=== PATIENT | female | born 1960 | race Caucasian/White ===

== ENCOUNTER 2020-04-22 21:46 | Inpatient (IN) | payer OTHER, SELFPAY ==
[~2020-04-22] VITALS: Ht 170.2 cm; Wt 106.6 kg
[2020-04-22 22:35] VITALS: BP_SYST 106
--- NOTE | 2020-04-22 22:40 | NUR ---
Patient to ER bed 1 to gown for evaluation. Side rails up.
--- NOTE | 2020-04-22 22:45 | NUR ---
PT FROM HOME A&O X4 C/O OF NAUSEA AND VOMITING SINCE WEDNESDAY. PT REPORTS VOMITING ALMOST EVERY 30 MINS. PT IS ALSO HAVING LOOSE STOOLS SHE VOMITS. PT HX OF DIABETES. PT UNABLE TO KEEP FLUIDS OR FOODS DOWN. PT C/O OF PAIN ALL OVER ABDOMEN, 6 OUT OF 10. PTS VOMIT APPEARS BROWN IN COLOR.
--- NOTE | 2020-04-22 22:49 | NUR ---
HERON - BS 566. AWARE.
--- NOTE | 2020-04-22 22:55 | NUR ---
ANKITA DOSHI at bedside examining patient.
[2020-04-22] MEDS ORDERED: NACL 0.9% 1,000 ML IV ONE (23:00)
--- NOTE | 2020-04-22 23:13 | NUR ---
# 22 gauge angiocath placed to LEFT HAND. Use of asceptic technique. Opsite placed over site. Blood return noted. Flushed with 10 cc of normal saline. No evidence of infiltration noted. Patient tolerated well.
--- NOTE | 2020-04-22 23:20 | NUR ---
iv fluids infusing at 999mls/hr per md verbal order.
--- NOTE | 2020-04-22 23:21 | NUR ---
xray at bedside.
--- NOTE | 2020-04-22 23:50 | NUR ---
# 18 gauge angiocath placed to right upper arm placed by Dr. Brand. Use of asceptic technique. Opsite placed over site. Blood return noted. Flushed with 10 cc of normal saline. No evidence of infiltration noted. Patient tolerated well.
--- NOTE | 2020-04-22 23:59 | NUR ---
spoke with wifes david .
[2020-04-23] VITALS (19 sets, daily range): BP systolic 78–112
--- NOTE | 2020-04-23 | NUR ---
lab at bedside.
--- NOTE | 2020-04-23 | NUR ---
respiratory at bedside for ABG.
--- NOTE | 2020-04-23 00:35 | NUR ---
# 16 FR In and Out catheter with use of sterile technique. Immediate return of 100 ml clear yellow urine noted. Urine sample collected and sent to lab. Pt tolerated procedure well.
[2020-04-23 00:39] LABS: BASOPHILS % (AUTO) 0.3 % (0.0-2.0); HEMATOCRIT 40.4 % (36-48); HEMOGLOBIN 13.2 g/dL (12.0-16.0); LYMPHOCYTES # (AUTO) 0.7 K/uL (1.0-5.5); LYMPHOCYTES % (AUTO) 4.2 % (20.5-51.5); MEAN CORPUSCULAR HEMOGLOBIN 28 pg (27-31); MEAN CORPUSCULAR HGB CONC 33 % (32-36); MEAN CORPUSCULAR VOLUME 87 fL (79.0-98.0); MONOCYTES # (AUTO) 0.9 K/uL (0.0-1.0); MONOCYTES % (AUTO) 5.4 % (1.7-9.3); NEUTROPHILS # (AUTO) 15.7 K/uL (1.8-7.7); NEUTROPHILS % (AUTO) 90.1 % (40.0-70.0); PLATELET COUNT (AUTO) 334 K/uL (130-430); RED BLOOD CELL COUNT(AUTO) 4.67 MIL/uL (4.2-6.2); RED CELL DISTRIBUTION WIDTH 13.3 % (9.0-15.0); WHITE BLOOD COUNT (AUTO) 17.4 K/uL (4.8-10.8)
[2020-04-23 00:53] LABS: CALCIUM 7.8 mg/dL (8.4-11.0); CREATININE 2.77 mg/dL (0.55-1.30); POTASSIUM 5.1 mmol/L (3.5-5.1)
--- NOTE | 2020-04-23 00:53 | NUR ---
accrolando - BS "HI" >600. AWARE.
[2020-04-23 00:57] LABS: BILIRUBIN,URINE 2+ (NEGATIVE); BLOOD, URINE NEGATIVE (NEGATIVE); CLARITY/URINE SL CLOUDY (CLEAR); COLOR,URINE YELLOW (YELLOW); GLUCOSE,URINE 3+ (NEGATIVE); KETONES,URINE 1+ (NEGATIVE); LEUKOCYTE ESTERASE ,URINE NEGATIVE (NEGATIVE); NITRITE, URINE NEGATIVE (NEGATIVE); PROTEIN URINE NEGATIVE (NEGATIVE); UROBILINOGEN,URINE 0.2 (0.2-1.0)
[2020-04-23 01:00] LABS: ALBUMIN 3.5 g/dL (3.4-4.8); BILIRUBIN,DIRECT 0.2 mg/dL (0.0-0.3); PHOSPHORUS 6.4 mg/dL (2.7-4.5)
[2020-04-23] MEDS ORDERED: INSU100V9 SQ (01:01)
[2020-04-23] MEDS ORDERED: FURO-150 PO (01:01)
[2020-04-23] MEDS ORDERED: INSU100V7 SUBCUT (01:01)
[2020-04-23] MEDS ORDERED: LISI2.5T48 PO (01:01)
--- NOTE | 2020-04-23 01:01 | NUR ---
Medication reconciliation completed with information provided by PATIENT. Any prior medication reconciliation on file was reviewed and corrected. PATIENT DOES NOT REMEMBER DOSAGES AT THIS TIME.
--- NOTE | 2020-04-23 01:08 | NUR ---
CRITICAL LAB REPORTING - CHLORIDE 84, GLUCOSE 643. AWARE
[2020-04-23 01:14] LABS: BACTERIA,URINE FEW /HPF (None Seen); RBC,URINE 0-3 /HPF (0-3); WBC,URINE 0-3 /HPF (0-3)
[2020-04-23] MEDS ORDERED: INSULIN REGULAR, HUMAN 10 UNITS/0.1 ML INJ IVP ONE ×2 (01:15)
[2020-04-23 01:19] LABS: HYALINE CASTS, URINE 0-10 /LPF (None Seen)
--- NOTE | 2020-04-23 01:30 | NUR ---
Patient's code status is FULL CODE paperwork completed and placed in chart.
--- NOTE | 2020-04-23 01:45 | NUR ---
covid and mrsa swab collected and sent to lab.
--- NOTE | 2020-04-23 02:10 | NUR ---
LAB AT BEDSIDE.
--- NOTE | 2020-04-23 02:16 | NUR ---
IV FLUIDS STARTED AT 100MLS/HR FOR MAINTENANCE PER MD ORDER. PT BP 87/42. MD AWARE.
[2020-04-23] MEDS ORDERED: NACL 0.9% 1,000 ML IV ONE ×2 (02:50→07:50)
--- NOTE | 2020-04-23 02:51 | NUR ---
PT BLOOD PRESSURE 81/30. MD AWARE. ORDER TO GIVE NORMAL SALINE 500ML BOLUS.
--- NOTE | 2020-04-23 02:57 | NUR ---
SPOKE WITH TO UPDATE HIM ON STATUS OF PATIENT, WITH PATIENT CONSENT.
[2020-04-23] MEDS ORDERED: NS 500 ML IV ONE ×2 (03:00)
[2020-04-23 03:01] LABS: CALCIUM 7.4 mg/dL (8.4-11.0); CREATININE 2.97 mg/dL (0.55-1.30); POTASSIUM 3.9 mmol/L (3.5-5.1)
--- NOTE | 2020-04-23 03:04 | NUR ---
CRITICAL LAB REPORTING - CHLORIDE 88, GLUCOSE 550. AWARE.
[2020-04-23] MEDS ORDERED: PIPERACILLIN/TAZO 3.375 GM in NS 50 ML IV ONE (03:15)
[2020-04-23] MEDS ORDERED: INSULIN REGULAR, HUMAN 100 UNITS in NS 99 ML IV ONE ×4 (03:15→03:30)
[2020-04-23] MEDS ORDERED: PIPERACILLIN/TAZOBACTAM 3.375 GM/VIAL (ZOSYN) IV ONE ×2 (03:36→04:13)
[2020-04-23] MEDS ORDERED: INSULIN REGULAR, HUMAN 10 UNITS/0.1 ML INJ ONE (03:37)
--- NOTE | 2020-04-23 03:38 | NUR ---
RECEIVED ADMIT ORDERS FROM DR. BETTS.
--- NOTE | 2020-04-23 03:40 | NUR ---
CALLED [facility] TO REQUEST ICU BED.
--- NOTE | 2020-04-23 03:50 | NUR ---
ACCNORBERTO - BS 511. MD AWARE. INSULIN DRIP INITIATED AT 6 UNITS/HR PER PROTOCOL.
--- NOTE | 2020-04-23 03:52 | NUR ---
IV ON RIGHT UPPER ARM INFILTRATED. IV DISCONTINUED. BLEEDING CONTROLLED.
[2020-04-23] MEDS ORDERED: ONDANSETRON HCL 4 MG/2 ML VIAL IVP ONE ×2 (04:45)
--- NOTE | 2020-04-23 04:51 | NUR ---
ACCUCHCORINA - BS 512. MD AWARE. INSULIN DRIP 6UNITS/HR
--- NOTE | 2020-04-23 04:52 | NUR ---
Patient will be admitted to [facility]. Admitted to ICU unit. Will go to room 3. Belongings list completed. Complete and up to date summary report printed. SBAR report to be given at bedside with opportunity for questions.
--- NOTE | 2020-04-23 04:52 | NUR ---
Transfer to ICU via ACLS protocol. Licensed nurse present. IV present no signs or symptoms of infiltration.
--- NOTE | 2020-04-23 05:00 | NUR ---
ICU ADMIT Pt is alert and oriented. Pt is on room air, RR even and unlabored. SR on monitor. Skin warm and dry. IV22G to LEFT HAND with IVF infusing and INSULIN DRIP. Belongings at bedside. Report given by ER nurse.
[2020-04-23] MEDS: NACL 0.9% 1,000 ML IV SCH ×3 (05:18→16:58)
--- NOTE | 2020-04-23 07:16 | NUR ---
Nutrition Update Harshal Scale 17 noted. Pt admitted for DKA Diet: NPO BMI: 37 kg/m2 RD to follow per nutrition care standards.
--- NOTE | 2020-04-23 07:30 | NUR ---
Opening Note Received bedside report from endorsing RN for continuation of care. Received patient awake and resting in bed, denies any pain or SOB at this time. No signs or symptoms of acute distress noted. Bed locked in lowest position, bed alarm on, and call light within reach. Fall and safety precautions in place.
[2020-04-23] MEDS ORDERED: INSULIN REGULAR, HUMAN 100 UNITS in NS 99 ML IV PRN ×2 (07:45)
[2020-04-23] MEDS ORDERED: DEXTROSE 50% JECT 50 ML DISP.SYRIN IVP PRN (07:45)
[2020-04-23 07:54] LABS: CALCIUM 7.6 mg/dL (8.4-11.0); CREATININE 3.08 mg/dL (0.55-1.30); POTASSIUM 4.3 mmol/L (3.5-5.1)
[2020-04-23 08:00] LABS: ALBUMIN 3.3 g/dL (3.4-4.8); TOTAL BILIRUBIN 0.7 mg/dL (0.0-1.0)
[2020-04-23] MEDS ORDERED: NOREPINEPHRINE BITARTRATE 4 MG in NS 246 ML IV PRN (08:00)
[2020-04-23] MEDS ORDERED: ONDANSETRON HCL 4 MG/2 ML VIAL IVP PRN (08:00)
--- NOTE | 2020-04-23 08:00 | NUR ---
Dr. Champion at bedside examining patient. New orders received.
[2020-04-23 08:08] LABS: BASOPHILS # (AUTO) 0.1 K/uL (0.0-0.2); BASOPHILS % (AUTO) 0.4 % (0.0-2.0); HEMATOCRIT 38.8 % (36-48); HEMOGLOBIN 12.8 g/dL (12.0-16.0); LYMPHOCYTES # (AUTO) 0.8 K/uL (1.0-5.5); LYMPHOCYTES % (AUTO) 4.5 % (20.5-51.5); MEAN CORPUSCULAR HEMOGLOBIN 28 pg (27-31); MEAN CORPUSCULAR HGB CONC 33 % (32-36); MEAN CORPUSCULAR VOLUME 85 fL (79.0-98.0); MONOCYTES # (AUTO) 0.8 K/uL (0.0-1.0); MONOCYTES % (AUTO) 4.6 % (1.7-9.3); NEUTROPHILS # (AUTO) 15.8 K/uL (1.8-7.7); NEUTROPHILS % (AUTO) 90.5 % (40.0-70.0); PLATELET COUNT (AUTO) 207 K/uL (130-430); RED BLOOD CELL COUNT(AUTO) 4.56 MIL/uL (4.2-6.2); RED CELL DISTRIBUTION WIDTH 13.6 % (9.0-15.0); WHITE BLOOD COUNT (AUTO) 17.5 K/uL (4.8-10.8)
[2020-04-23 08:43] LABS: PHOSPHORUS 5.7 mg/dL (2.7-4.5)
[2020-04-23 08:49] LABS: ACETONE, SERUM POSITIVE (NEGATIVE)
[2020-04-23] MEDS: FAMOTIDINE PF 20 MG/2 ML VIAL IVP SCH ×2 (09:15→21:21)
--- NOTE | 2020-04-23 09:16 | NUR ---
Witness insulin drip titration to 2 units/hr
[2020-04-23 09:34] LABS: INR 0.9 (0.8-1.2); PROTHROMBIN TIME 9.7 SECS (9.5-12.5)
--- NOTE | 2020-04-23 09:49 | NUR ---
Dr. Arauz at bedside examining patient. New orders received.
--- NOTE | 2020-04-23 10:04 | NUR ---
Family Update Spoke with patient's David on the phone regarding patient status and plan of care. All questions answered and education provided.
[2020-04-23] MEDS ORDERED: METOCLOPRAMIDE HCL 10 MG/2 ML VIAL IVP PRN (10:15)
[2020-04-23] MEDS ORDERED: MORPHINE 4 MG/ML INJ. SYRINGE IVP PRN (10:15)
[2020-04-23] MEDS ORDERED: ACETAMINOPHEN 325 MG TABLET PO PRN (10:15)
[2020-04-23] MEDS: MORPHINE 2 MG/ML INJ. SYRINGE IVP PRN ×4 (10:38→21:11)
--- NOTE | 2020-04-23 10:45 | NUR ---
LYNNE CATH: # 16 FR Lynne catheter with 10 cc bulb inserted with use of sterile technique. Bulb inflated with 10 cc sterile water. Immediate return of 350 cc cloudy, yellow urine noted. Bedside drainage bag placed below level of bladder. Urine sample collected and sent to lab at 1100. Pt tolerated procedure well.
[2020-04-23 11:00] LABS: THYROID STIMULATING HORMONE 0.88 uIu/mL (0.34-4.82)
[2020-04-23 12:03] LABS: CALCIUM 7.6 mg/dL (8.4-11.0); CREATININE 2.91 mg/dL (0.55-1.30); POTASSIUM 4.2 mmol/L (3.5-5.1)
[2020-04-23] MEDS: ONDANSETRON HCL 4 MG/2 ML VIAL IVP PRN ×2 (12:32→22:09)
--- NOTE | 2020-04-23 12:34 | NUR ---
Witness insulin drip titration to 3 units/hr
[2020-04-23] MEDS: PIPERACILLIN/TAZO 2.25G/DEX-IS 50 ML IV SCH ×2 (13:12→22:03)
--- NOTE | 2020-04-23 13:14 | NUR ---
Witness insulin drip titration to 2 units/hr
--- NOTE | 2020-04-23 14:55 | NUR ---
PICC Line Insertion PICC Line insertion being done at bedside by PICC line RN Ryland.
--- NOTE | 2020-04-23 16:21 | NUR ---
Witness insulin drip titration to 1 unit/hr
[2020-04-23 16:48] LABS: CALCIUM 7.9 mg/dL (8.4-11.0); CREATININE 2.79 mg/dL (0.55-1.30); POTASSIUM 4.1 mmol/L (3.5-5.1)
--- NOTE | 2020-04-23 19:05 | NUR ---
Closing Note Endorsed bedside report to oncoming RN using SBAR approach for continuation of care.
--- NOTE | 2020-04-23 19:27 | NUR ---
Opening Note Received bedside report from endorsing RN for continuation of care. Received patient awake and resting in bed, denies any pain or SOB at this time. No signs or symptoms of acute distress noted. Introduction made, Bed locked in lowest position, bed alarm on, and call light within reach. Fall and safety precautions in place.
--- NOTE | 2020-04-23 19:35 | NUR ---
Lab Draw: cvir tech at bedside performing BMP draw.
--- NOTE | 2020-04-23 20:00 | NUR ---
Skin Note: Bilateral Plantar of Feet noted with large areas of abrasions / cracked open areas. Wound Consult placed. Will endorse to AM nurse.
--- NOTE | 2020-04-23 20:07 | NUR ---
Insulin Drip: BS 94, per protocol Insulin drip turned off, Charge aware.
[2020-04-23] MEDS: D5NS 1,000 ML IV SCH (20:35)
--- NOTE | 2020-04-23 20:47 | NUR ---
Blood Draw: requested Chem 7 panel, drawn from [facility], wasted 10 ml then blanco Green Top.
--- NOTE | 2020-04-23 21:11 | NUR ---
WITNESS Witnessed LETTY Friend titrate Insulin Drip to 1unit/hr.
--- NOTE | 2020-04-23 21:11 | NUR ---
GLUCOSE: BS 157, INSULIN RESTARTED AT 1 UNIT PER PROTOCOL
--- NOTE | 2020-04-23 22:00 | NUR ---
WITNESS Witnessed LETTY Friend titrate Insulin Drip to 3unit/hr.
--- NOTE | 2020-04-23 22:15 | NUR ---
C/O Patient c/o Nausea, Zofran IVP given, medication found to be effective.
[2020-04-23 22:22] LABS: CALCIUM 8.1 mg/dL (8.4-11.0); CREATININE 2.3 mg/dL (0.55-1.30); POTASSIUM 3.8 mmol/L (3.5-5.1)
--- NOTE | 2020-04-23 22:40 | NUR ---
PIV: PIV to left Hand d/c, non-patent, unable to flush.
--- NOTE | 2020-04-23 23:03 | NUR ---
WITNESS Witnessed LETTY Friend titrate Insulin Drip to 2unit/hr.
--- NOTE | 2020-04-23 23:33 | NUR ---
Nsg Rounds: Patient resting in bed with eyes closed, no acute distress noted. Bed in lowest and locked position with call light in reach. New bag of Insulin mixed by charge nurse, drip running at 2 units via KI PICC.
[2020-04-24] VITALS (22 sets, daily range): BP systolic 98–124
--- NOTE | 2020-04-24 00:08 | NUR ---
Blood Draw: requested Chem 7 panel Q4 hours, drawn from [facility], wasted 10 ml then blanco Green Top.
[2020-04-24 00:53] LABS: CALCIUM 7.8 mg/dL (8.4-11.0); CREATININE 2.34 mg/dL (0.55-1.30); POTASSIUM 3.8 mmol/L (3.5-5.1)
--- NOTE | 2020-04-24 02:00 | NUR ---
Nsg Rounds: Patient asleep in bed, no discomfort noted. BS 217, remains on 2 units Insulin Drip via KI PICC. Bed in lowest locked position, call light in reach. Continuing to monitor for adverse effects.
--- NOTE | 2020-04-24 03:07 | NUR ---
WITNESS Witnessed LETTY Friend titrate Insulin Drip to 1unit/hr.
[2020-04-24] MEDS: D5NS 1,000 ML IV SCH (03:38)
--- NOTE | 2020-04-24 03:43 | NUR ---
Blood Draw: requested Chem 7 panel Q4 hours, drawn from [facility] P[facility], wasted 10 ml then blanco Green Top.
[2020-04-24 04:03] LABS: CALCIUM 8.1 mg/dL (8.4-11.0); CREATININE 2.07 mg/dL (0.55-1.30); POTASSIUM 3.9 mmol/L (3.5-5.1)
--- NOTE | 2020-04-24 04:06 | NUR ---
WITNESS Witnessed LETTY Friend titrate Insulin Drip to 2unit/hr.
--- NOTE | 2020-04-24 04:12 | NUR ---
Consults: Wound Care consult placed, Dietary consult placed r/t open areas on Bilateral Plantar Feet.
[2020-04-24] MEDS: MORPHINE 2 MG/ML INJ. SYRINGE IVP PRN ×3 (04:58→20:18)
--- NOTE | 2020-04-24 04:59 | NUR ---
WITNESS Witnessed LETTY Friend titrate Insulin Drip to 1unit/hr.
--- NOTE | 2020-04-24 05:00 | NUR ---
Pain: Patient C/O body aches, afebrile. Pt verbalized 6/10 pain on numeric scale, PRN Morphine 2 mg IVP given. Pt tolerated well. Will re-assess.
--- NOTE | 2020-04-24 05:30 | NUR ---
Pain Re-Assess: Pt asleep in bed with call light in reach, bed in lowest locked position.
[2020-04-24] MEDS ORDERED: DEXTROSE 50% JECT 50 ML DISP.SYRIN IVP PRN ×2 (05:45→16:30)
[2020-04-24] MEDS: PIPERACILLIN/TAZO 2.25G/DEX-IS 50 ML IV SCH ×3 (06:02→22:48)
--- NOTE | 2020-04-24 06:14 | NUR ---
PICC Line: Patient states PICC line is becoming increasingly painful, measured circumference 38cmm, will notify .
--- NOTE | 2020-04-24 06:16 | NUR ---
Paged Dr. Arauz paged r/t PICC line insertion pain, pending return call. Charge made aware.
--- NOTE | 2020-04-24 06:26 | NUR ---
Per Dr. Arauz: New orders rc'vd and transcribed, STAT X-ray, STAT Venous Doppler, D/C Fluids, D/C Q hr Accu checks, Start Full Liquid Diet.
--- NOTE | 2020-04-24 06:34 | NUR ---
Insulin Drip Turned Off per MD Dr. Arauz, start sliding scale.
--- NOTE | 2020-04-24 06:35 | NUR ---
WITNESS Witnessed LETTY Friend turn Insulin Drip OFF PER MD ORDERS.
--- NOTE | 2020-04-24 06:35 | NUR ---
X-ray: X-Ray completed, pending reading from Radiologist.
--- NOTE | 2020-04-24 07:01 | NUR ---
Closing Note Endorsed bedside report to oncoming RN using SBAR approach for continuation of care.
[2020-04-24 08:09] LABS: CALCIUM 8.2 mg/dL (8.4-11.0); CREATININE 1.82 mg/dL (0.55-1.30)
[2020-04-24] MEDS: FAMOTIDINE PF 20 MG/2 ML VIAL IVP SCH ×2 (09:07→21:01)
[2020-04-24] MEDS: NACL 0.9% 1,000 ML IV SCH (09:08)
--- NOTE | 2020-04-24 09:57 | NUR ---
Dr. Arauz here to see patient.
--- NOTE | 2020-04-24 10:52 | NUR ---
Wound Evaluation: Wound Consult ordered for Low Harshal Score. Patient evaluated for a low Harshal score of 17. Patient was awake, alert, oriented and received in a Didi Bed with an IsoFlex NAN mattress. Patient is able to turn in bed independently. Skin assessment: 1. Left Plantar Foot: Multiple multiple dry fissures, present on admission. Plantar surface of foot has dry, hard skin. 2. Right Plantar Foot: Multiple multiple dry fissures, present on admission. Plantar surface of foot has dry, hard skin. Recommend: Cleanse bilateral feet with mild soap and water. Pat dry. Apply Eucerin cream to dry skin areas on bilateral feet and legs. Perform site care twice daily. Also recommend: Encourage and assist patient as needed with repositioning every 2 hours with pillow support. Elevate, off-load and float bilateral heels with pillows. Offload pressure areas with pillows for pressure re-distribution. Perform skin care and monitor skin integrity Q shift. Use moisture barrier cream on moisture susceptible areas QID and PRN for soiling.
[2020-04-24] MEDS: EMOLLIENT COMBINATION NO.73 78 GM CREAM..G. TP SCH ×2 (11:00→21:02)
[2020-04-24] MEDS: INSULIN REGULAR, HUMAN 100 UNITS/ML, 10 ML VIAL (humuLIN R) SUBCUT PRN (11:59)
--- NOTE | 2020-04-24 12:00 | NUR ---
Blood Sugar - 574 mg/dl. Due insulin coverage given. Will call MD and notify per protocol.
[2020-04-24] MEDS: ONDANSETRON HCL 4 MG/2 ML VIAL IVP PRN ×2 (12:04→20:18)
[2020-04-24] MEDS ORDERED: INSULIN GLARGINE 100 UNITS/ML 10 ML VIAL SUBCUT ONE (13:15)
--- NOTE | 2020-04-24 14:00 | NUR ---
Pt asleep at this time. Vitals stable.
[2020-04-24 15:10] LABS: CALCIUM 8.2 mg/dL (8.4-11.0); CREATININE 1.99 mg/dL (0.55-1.30); POTASSIUM 4.4 mmol/L (3.5-5.1)
--- NOTE | 2020-04-24 15:47 | NUR ---
PAGED PAGED GOPI MACIAS AT [phone] SPOKE WITH SARAH.
--- NOTE | 2020-04-24 16:25 | NUR ---
Critical labs relayed to Dr. Champion, with orders carried out. Will restart Insulin drip. TO/RB orders done.
[2020-04-24] MEDS ORDERED: INSULIN REGULAR, HUMAN 100 UNITS in NS 99 ML IV PRN ×2 (16:30)
--- NOTE | 2020-04-24 16:50 | NUR ---
Witnessed Insulin Drip to 4 units/hr.
--- NOTE | 2020-04-24 16:50 | NUR ---
BS - 396 MG/DL. Insulin drip restarted at 4 units/hr
--- NOTE | 2020-04-24 18:05 | NUR ---
BS - 285 mg/dl. Insulin drip titrated down to 2 units/hr
--- NOTE | 2020-04-24 18:08 | NUR ---
Witnessed insulin drip titrated to 2 units/hr.
--- NOTE | 2020-04-24 19:00 | NUR ---
BS - 268 mg/dl. Insulin drip @ 2 units.hr. Addendum: 04/24/20 at 1902 by Konrad Da Silva RN Insulin drip @ 2 units/hr
--- NOTE | 2020-04-24 19:55 | NUR ---
WITNESS Witnessed LETTY Friend titrate Insulin Drip to 1unit/hr.
--- NOTE | 2020-04-24 20:21 | NUR ---
Pain: Pt verbalized 6/10 pain, states, "My whole body just aches". PRN Morphine Given 2 mg IVP with 4 mg IVP Zofran.
--- NOTE | 2020-04-24 20:45 | NUR ---
Pain Rx: Morphine Mildly effective, patient states "I feel a little better right now".
--- NOTE | 2020-04-24 21:00 | NUR ---
WITNESS Witnessed LETTY Friend titrate Insulin Drip to 0.5unit/hr.
[2020-04-24 21:01] LABS: CALCIUM 8.4 mg/dL (8.4-11.0); CREATININE 1.75 mg/dL (0.55-1.30); POTASSIUM 4.3 mmol/L (3.5-5.1)
--- NOTE | 2020-04-24 21:07 | NUR ---
Foot Care: Foot care provided with application of Eucerin, new socks offered, patient declined.
--- NOTE | 2020-04-24 22:30 | NUR ---
NSG Rounds: Patient resting in no acute distress, patient requested snack. Sugar Free Jello given. Bed in lowest locked position with call light in reach.
[2020-04-25] VITALS (11 sets, daily range): BP systolic 108–140
--- NOTE | 2020-04-25 | NUR ---
NSG Rounds: Patient asleep in no apparent distress and or discomfort. Bed in lowest position call light in reach.
--- NOTE | 2020-04-25 02:01 | NUR ---
NSG Rounds: Patient asleep in no apparent distress and or discomfort. Bed in lowest position call light in reach.
[2020-04-25 02:36] LABS: CALCIUM 8.3 mg/dL (8.4-11.0); CREATININE 1.64 mg/dL (0.55-1.30); POTASSIUM 3.8 mmol/L (3.5-5.1)
[2020-04-25] MEDS: MORPHINE 2 MG/ML INJ. SYRINGE IVP PRN (02:56)
--- NOTE | 2020-04-25 03:30 | NUR ---
PRN Rx: PRN Morphine given for body aches bu covering RN, medication effective.
[2020-04-25] MEDS: NACL 0.9% 1,000 ML IV SCH (05:23)
[2020-04-25] MEDS: PIPERACILLIN/TAZO 2.25G/DEX-IS 50 ML IV SCH (05:29)
--- NOTE | 2020-04-25 05:33 | NUR ---
NSG Rounds: Patient sitting up in bed crying, patient stated "I feel sad so often and dont know why". Encouraged patient to express feelings. Will endorse to am nurse for consult with Pysch and [employer] As[employer]er. Patient states, "I dont have the money to buy my insulin". Resources will be requested to aide patient, charge aware.
--- NOTE | 2020-04-25 07:25 | NUR ---
AM ROUNDS: PATIENT ON THE BED.AWAKE,ALERT AND ORIENTED X4. INSULIN DRIP AT RIGHT UPPER ARM PICC LINE,DRESSING CLEAN AND DRY. IV NS AT 50CC/H. BILATERAL SCD'S LE OFF PER PATIENT'S REQUEST. ON MEDICAL TRANSCRIPTION RADIOLOGY.HOURLY ACCU CHECK PER REPORT. NOT IN ANY DISTRESS.
--- NOTE | 2020-04-25 08:00 | NUR ---
BLOOD SUGAR: BLOOD GTIIC=391LC/DL,MAINTAINED 0.5UNIT/H RATE PER PROTOCOL.
[2020-04-25 08:24] LABS: BASOPHILS # (AUTO) 0.1 K/uL (0.0-0.2); BASOPHILS % (AUTO) 0.6 % (0.0-2.0); EOSINOPHILS # (AUTO) 0.1 K/uL (0.0-0.4); EOSINOPHILS % (AUTO) 0.9 % (0.0-4.0); HEMATOCRIT 34.2 % (36-48); HEMOGLOBIN 11.6 g/dL (12.0-16.0); LYMPHOCYTES # (AUTO) 1.2 K/uL (1.0-5.5); LYMPHOCYTES % (AUTO) 14.3 % (20.5-51.5); MEAN CORPUSCULAR HEMOGLOBIN 29 pg (27-31); MEAN CORPUSCULAR HGB CONC 34 % (32-36); MEAN CORPUSCULAR VOLUME 84 fL (79.0-98.0); MONOCYTES # (AUTO) 0.8 K/uL (0.0-1.0); MONOCYTES % (AUTO) 9.7 % (1.7-9.3); NEUTROPHILS # (AUTO) 6.2 K/uL (1.8-7.7); NEUTROPHILS % (AUTO) 74.5 % (40.0-70.0); PLATELET COUNT (AUTO) 211 K/uL (130-430); RED BLOOD CELL COUNT(AUTO) 4.05 MIL/uL (4.2-6.2); RED CELL DISTRIBUTION WIDTH 13.6 % (9.0-15.0); WHITE BLOOD COUNT (AUTO) 8.3 K/uL (4.8-10.8)
[2020-04-25] MEDS: FAMOTIDINE PF 20 MG/2 ML VIAL IVP SCH (08:32)
[2020-04-25] MEDS: EMOLLIENT COMBINATION NO.73 78 GM CREAM..G. TP SCH (08:36)
[2020-04-25 08:40] LABS: CALCIUM 8.5 mg/dL (8.4-11.0); CREATININE 1.43 mg/dL (0.55-1.30); POTASSIUM 3.8 mmol/L (3.5-5.1)
--- NOTE | 2020-04-25 09:35 | NUR ---
MD ROUNDS: PATIENT SEEN BY DR BETTS WITH ORDERS DC INSULIN DRIP AND CHANGE ACCU CHECK TO EVERY 6HOURS PER SLIDING SCALE.MAY TRANSFER PATIENT TO MED SURGICAL UNIT.
[2020-04-25] MEDS ORDERED: INSULIN GLARGINE 100 UNITS/ML 10 ML VIAL SUBCUT ONE (09:45)
--- NOTE | 2020-04-25 09:46 | NUR ---
DC INSULIN DRIP: STOPPED INSULIN DRIP ORDERED BY .
--- NOTE | 2020-04-25 09:50 | NUR ---
RN ROUNDS: INFORMED PATIENT INSULIN DRIP OFF AND OKAY TO BE TRANSFER TO MEDICAL SURGICAL UNIT ORDERED.
--- NOTE | 2020-04-25 10:20 | NUR ---
SPOKE TO DAUGHTER/DC EMPLOYEE BENEFITS INSURANCE AGENT: SPOKE TO PATIENT'S DAUGHTER NANCY WANT'S TO TALK TO ADMISSIONS ADVISOR REGARDING INSURANCE NOT APPROVING HER'S MOM'S INSULIN. SPOKE TO JUAN DAVID DC EMPLOYEE BENEFITS INSURANCE AGENT AND TOLD HER PATIENT'S CONCERN AND DAUGHTER WANTING TO SPEAK TO ADMISSIONS ADVISOR WELL.
--- NOTE | 2020-04-25 10:32 | NUR ---
REPORT NOTES: REPORT GIVEN TO [facility] NURSE.
--- NOTE | 2020-04-25 11:20 | NUR ---
TRANSFER OUT TO [facility]: PATIENT TRANSFERRED OUT TO MEDICAL SURGICAL UNIT IN ROOM 116-B VIA WHEELCHAIR IN STABLE CONDITION. ORIENTED PATIENT TO CALL LIGHT AND SITUATED COMFORTABLY. [facility] NURSE ART MCKINNON.
--- NOTE | 2020-04-25 11:21 | NUR ---
Admit Note received patient from ICU, patient instable condition, received report from Ermelinda SAENZ at 1033, safety measures put in place, fall and aspiration precautions put in place, will monitor patient for any changes.
[2020-04-25] MEDS: INSULIN REGULAR, HUMAN 100 UNITS/ML, 10 ML VIAL (humuLIN R) SUBCUT PRN (12:33)
--- NOTE | 2020-04-25 14:26 | NUR ---
Spoke w/ patient-she is concerned about the cost of her medications, not covered by insurance. Spoke with patient's daughter, , insurance and PCP's office-Dr Ca. Family can cover the cost of insulin w/ RX discount card according to and daughter. (patient given 2 Rx discount cards and joe for Good RX). Patient needs to complete forms for [employer] for help with medication cost-her insulin is [id number] was explained to her, she stated she is working w/ the PCP's office to complete this paper work. Patient and family will also explore insurance through her 's work for better Rx coverage.
--- NOTE | 2020-04-25 14:41 | NUR ---
Birth Certificate Clerk Note Patient referred by patient, Dr Arauz, and nursing due to needing help with obtaining insulin and crying. Later, patient voiced possible suicidal ideation. Libertad MURGUIA managed the questions regarding insurance and insulin. Met with patient at bedside. Patient is tearful and stated that she wants to go home. Offered support and discussed the joe Good RX that patient is familiar with and will use to obtain her prescription until her insurance issues are resolved. Discussed that patient's nurse was concerned that she had mentioned suicide. Patient stated she had said she felt like getting a gun and shooting everyone and herself. Patient stated she was "kidding". She stated she was being stupid and trying to voice how frustrated she is. "I shot my mouth off. I'm sorry. That was stupid. I wouldn't even know where to get a gun. I just want to go home." When I stated Dr Arauz wanted her to stay another day, she said again that she wanted to go home. I asked again about suicidal or homicidal ideation or attempts. The patient stated she would never do such a thing. She has too much to live for, including her grandson who lives with her. I provided a list of mental health resources and encouraged patient to call when she gets home. Patient does not want to see a psychiatrist in the hospital. Patient sees the Covid pandemic as the start of her problems. She lost her job, and, thus, her insurance. This led to her not getting her insulin paid for under her new insurance. She does not like being isolated at home. She does live with her , daughter, and grandson. She has been feeling sad often, but recently, not before Covid. She again stated she would follow up with a mental health professional for counseling. I do not think she meant her comments on a gun to be taken seriously as suicidal or homicidal thoughts. I recommend and referred patient to outpatient mental health services to help her cope with her feelings of sadness and isolation. Patient agreed. Addendum: 04/25/20 at 1510 by Heidi Carcamo LCSW Spoke with Cindy SAENZ. Since patient is now aware that any comments that could be seen as suicidal are taken very seriously, if she makes any additional such comments, we should obtain a psychiatric consult and be given a sitter. Addendum: 04/25/20 at 1518 by Heidi Carcamo LCSW Late note from above. Patient has no history of mental health diagnosis or intervention.
--- NOTE | 2020-04-25 14:43 | NUR ---
Dietitian Recommendations * Recommend continuing [facility] diet * Consider renal diet if renal labs do not improve LP, RD Please refer to Nutrition Assessment for details. Addendum: 04/25/20 at [address] Amended: Links added.
[2020-04-25 15:26] LABS: CALCIUM 7.8 mg/dL (8.4-11.0); CREATININE 1.26 mg/dL (0.55-1.30); POTASSIUM 3.5 mmol/L (3.5-5.1)
--- NOTE | 2020-04-25 16:00 | NUR ---
AMA: Patient does not wish to proceed with medical care recommended by Dr. Arauz. Patient given information related to possible complications, up to and including , which could occur as a result of leaving hospital at this time. Patient verbalizes understanding of risks involved leaving against medical advice. Patient has signed AMA form. Torres removed, patient educated to follow-up with ER if no void within 8 hours-patient verbalized her understanding. KI midline removed, catheter intact, dressing applied, no active bleeding. Patient left floor via wheelchair to private vehicle in no distress.
[2020-04-25] MEDS ORDERED: INSULIN GLARGINE 100 UNITS/ML 10 ML VIAL SUBCUT SCH (21:00)
== END 2020-04-25 16:00 | disposition left against medical advice (07) | DRG 682 ==
LOC: SED 21:46 → SIC 04-23 03:30 → STU 04-25 11:22 → SMU 04-25 11:23
PROVIDERS: ADMIT Internal Medicine Hospice and Palliative Medicine; ATTEND Internal Medicine Hospice and Palliative Medicine
DX: N17.9 Acute kidney failure, unspecified (principal); E11.10 Type 2 diabetes mellitus with ketoacidosis without coma; Z20.828 Contact with and (suspected) exposure to other viral communicable diseases; E11.51 Type 2 diabetes mellitus with diabetic peripheral angiopathy without gangrene; Z79.899 Other long term (current) drug therapy; Z86.73 Personal history of transient ischemic attack (TIA), and cerebral infarction without residual deficits
CPT/HCPCS: 36415; 36600; 71045; 80048; 80053; 80061; 80076; 81000-TC; 82009-TC; 82803-TC; 82962; 83036; 83605; 83690-TC; 83735-TC; 84100-TC; 84443-TC; 84484; 84702-TC; 85025; 85610-TC; 85730-TC; 87040-TC; 87081; 87086; 93005; 93971; 99291; C1751; J1815; J2270; J2405; J2543; J2765; J3490; J7030; J7040; J7042; J7050

== ENCOUNTER 2022-01-29 12:55 | Emergency (ER) | payer OTHER ==
[~2022-01-29] VITALS: Ht 170.2 cm; Wt 104.3 kg
[~2022-01-29 12:55] MED LIST: FURO-150 PO; INSU100V7 SUBCUT; INSU100V9 SQ; LISI2.5T48 PO
[2022-01-29 13:02] VITALS: BP_SYST 150
--- NOTE | 2022-01-29 13:07 | NUR ---
CHECKED BS HERE 87 UPON ARRIVAL, PT REFUSED TO WEAR MASK
--- NOTE | 2022-01-29 14:00 | NUR ---
MD singer with pt CARLOS.
--- NOTE | 2022-01-29 14:30 | NUR ---
BLood sugar 145 pt awake alert and responsive will continue to monitor glucose.
--- NOTE | 2022-01-29 15:10 | NUR ---
JAMISON completed bs, report given to
[2022-01-29 15:44] LABS: BASOPHILS % (AUTO) 0.2 % (0.0-2.0); EOSINOPHILS # (AUTO) 0.1 K/uL (0.0-0.4); EOSINOPHILS % (AUTO) 0.3 % (0.0-4.0); HEMATOCRIT 43.8 % (36-48); HEMOGLOBIN 14.8 g/dL (12.0-16.0); LYMPHOCYTES % (AUTO) 5.5 % (20.5-51.5); MEAN CORPUSCULAR HEMOGLOBIN 28 pg (27-31); MEAN CORPUSCULAR HGB CONC 34 % (32-36); MEAN CORPUSCULAR VOLUME 83 fL (79.0-98.0); MONOCYTES # (AUTO) 0.5 K/uL (0.0-1.0); MONOCYTES % (AUTO) 2.9 % (1.7-9.3); NEUTROPHILS # (AUTO) 16.6 K/uL (1.8-7.7); NEUTROPHILS % (AUTO) 91.1 % (40.0-70.0); PLATELET COUNT (AUTO) 261 K/uL (130-430); RED BLOOD CELL COUNT(AUTO) 5.28 MIL/uL (4.2-6.2); RED CELL DISTRIBUTION WIDTH 13.2 % (9.0-15.0); WHITE BLOOD COUNT (AUTO) 18.2 K/uL (4.8-10.8)
--- NOTE | 2022-01-29 16:00 | NUR ---
Pt bib bls to ER Pt in on license of [facility]. Pt cc hyperglycemia. Pt is aaox3 with refusal to communicate story. Pt report from BLS states pt was at home with family and blood sugar level at 35.
--- NOTE | 2022-01-29 16:10 | NUR ---
Pt cooperative aaox4, pt states previous medical history of lungectomy and . Pt eating a turkey sandwich, apple juice and chips intake 100%.
[2022-01-29 16:26] LABS: CALCIUM 9.1 mg/dL (8.4-11.0); CREATININE 0.92 mg/dL (0.55-1.30); POTASSIUM 3.7 mmol/L (3.5-5.1)
[2022-01-29 16:36] LABS: ALBUMIN 3.7 g/dL (3.4-4.8); TOTAL BILIRUBIN 0.6 mg/dL (0.0-1.0)
--- NOTE | 2022-01-29 19:00 | NUR ---
Patient given written and verbal discharge instructions and verbalizes understanding. ER MD discussed with patient the results and treatment provided. Patient in stable condition. ID arm band removed. IV catheter removed intact and dressing applied, no active bleeding. Opportunity for questions provided and answered. Medication side effect fact sheet provided.
[2022-01-29 20:00] VITALS: BP_SYST 142
== END 2022-01-29 20:00 | disposition home or self-care (01) ==
LOC: SED 12:55
DX: E10.649 Type 1 diabetes mellitus with hypoglycemia without coma (principal); I10 Essential (primary) hypertension; Z79.4 Long term (current) use of insulin
CPT/HCPCS: 36415; 71045; 80053; 82550; 82962; 85025; 93005; 99285